=== PATIENT | male | born 1985 | race Caucasian/White ===

== ENCOUNTER → 2017-06-18 | Day surgery (SDC) | payer OTHER ==
[~2017-06-18] VITALS: Ht 185.4 cm; Wt 111.1 kg
[~2017-06-18] MED LIST: IBUPROFEN800 M1 PO; PERCOCET 10-321 EACH PO
--- NOTE | 2017-06-19 13:38 | Operative Report ---
Operative/Inv Procedure Report Surgery Date: 06/18/17 Name of Procedure: open scrotal exploration, excision or left epidydimal cyst, and hydrocele. Pre-Operative Diagnosis: chronically painful left epididymus cyst Post-Operative Diagnosis: same. plus hydrocoele Estimated Blood Loss: less than 50ml Surgeon/Accounting Manager Assistant Controller: Isra Dennis MD Anesthesia: laryngeal mask airway, block Drains: none Specimens: left hydrocele sac, and left epidydimal cyst. Complications: none Operative/Procedure Note Note: The patient was taken to the operating room and placed in the OR table in supine position. With the patient awake, timeout was performed in order to confirm correct identity, laterality, antibiotics, anesthesia, and other pertinent perioperative information. After adequate anesthesia and IV antibiotics, the patient was frog legged and draped and prepped in the usual surgical fashion. Local anesthesia was used to infiltrate the midline scrotal raphae. A 3 cm incision was made along the lower portion of the midline raphae in order to expose the detrusor fascia. Incision was carried out through the detrusor fascia towards the left side using cutting current on the Bovie. Spot cauterization using coag. current was used to control any bleeding. The left scrotum was entered, and the hydrocoele sac was incised draining small amount of clear fluid. Again, the incision was open using coag current, and the hydrocele was excised using cutting curret. Bovie coag current was then used to cauterize the hydrocele edge to assure good hemostasis. The left testicle was then extruded through the incision, without significant difficulty. A 2cm epididymal cyst was identified at the head. The e-cyst was gently excised using the Bovie cautery in order to remove the cyst intact, and minimize damage to the epididymus. No obvious neck of the cyst was seen to suture. Copious irrigation was performed with sterile water, and no significant bleeding was noted. The left testicle was then replaced into the left scrotum, in its anatomic position. The detrusor fascia was then closed/re- approximated using 2-0 Vicryl running suture. The scrotal skin was then closed using 2-0 chromic suture in a vertical mattress fashion. All sponge needle and instrument count were correct at the end of the case. Copious amounts of bacitracin and fluff gauze was placed on the incision. Scrotal support was placed on the patient, as well as ice packs. The patient tolerated the procedure well, was extubated, and taken to the recovery room in satisfactory condition. He is to be discharged home with pain medication and antibiotics, and follow-up visit in 2 weeks' time. Discharge Disposition: PACU Additional Comments: f/u 2-4 weeks POC CC: Isra Dennis MD
== END ==
LOC: STS 01:42
DX: N43.3 Hydrocele, unspecified (principal); N50.3 Cyst of epididymis; N50.82 Scrotal pain; Z87.891 Personal history of nicotine dependence
CPT/HCPCS: J0690; J1100; J2001; J2250